=== PATIENT | male | born 1990 | race Caucasian/White ===

== ENCOUNTER 2023-06-13 09:58 | Outpatient (CLI) | payer OTHER | END 2023-06-13 09:59 | disposition home or self-care (01) | LOC: BICRAD 09:58 | PROVIDERS: ATTEND Family Medicine | DX: M54.50 Low back pain, unspecified (principal); M79.672 Pain in left foot; M79.671 Pain in right foot | CPT/HCPCS: 72100 ==

== ENCOUNTER 2023-06-15 09:01 | Outpatient (CLI) | payer OTHER | END 2023-06-15 09:02 | disposition home or self-care (01) | LOC: BICMRI 09:01 | PROVIDERS: ATTEND Family Medicine | DX: M23.92 Unspecified internal derangement of left knee (principal) ==